=== PATIENT | female | born 1945 | race Asian ===

== ENCOUNTER 2016-12-08 22:14 | Inpatient (IN) | payer MEDICARE, OTHER ==
[~2016-12-08] VITALS: Ht 157.5 cm; Wt 52.2 kg
[2016-12-08] MEDS ORDERED: HYDRALAZINE HCL50 MG ORAL (22:19)
[2016-12-08] MEDS ORDERED: FUROSEMIDE40 MG ORAL (22:19)
[2016-12-08] MEDS ORDERED: CARVEDILOL12.5 MG ORAL (22:19)
[2016-12-08] MEDS ORDERED: ATORVASTATIN CA20 MG ORAL (22:19)
[2016-12-08] MEDS ORDERED: AMLODIPINE BESYL5 MG ORAL (22:19)
[2016-12-08] MEDS ORDERED: PLAVIX75 MG ORAL (22:19)
[2016-12-08] MEDS ORDERED: DIOVAN160 MG ORAL (22:19)
[2016-12-08] MEDS ORDERED: ASPIRIN81 MG ORAL (22:19)
[2016-12-08 22:45] VITALS: BP 160/53
--- NOTE | 2016-12-08 22:54 | Emergency Room Report ---
History of Present Illness General Chief Complaint: General Complaint Source: Patient Present Illness HPI Patient presents with complaints of concern that she took her medications on her second basis Initially at 6 PM then at 7 PM When asked how the patient realized that she had taken the medicine for a second time she reports that she has pain to the occipital region of her head and doesn't feel well Patient is a poor historian I cannot obtain specifically how the patient realized she had taken her medication again At this time denies any chest pain or shortness of breath denies any focal weakness Allergies: Coded Allergies: No Known Allergies (Unverified , 12/08/16) Patient History Limited by: medical condition Past Medical History: see triage record Pertinent Family History: none Reviewed Nursing Documentation: PMH: Agreed, PSxH: Agreed Nursing Documentation-PMH Hx Cardiac Problems: Yes - HIGH CHOLESTEROL Hx Hypertension: Yes Review of Systems All Other Systems: negative except mentioned in HPI Physical Exam Vital Signs Date Time Temp Pulse Resp B/P Pulse Ox O2 Delivery O2 Flow Rate FiO2 12/08/16 22:22 97.7 81 16 160/53 98 Room Air Sp02 EP Interpretation: reviewed, normal General Appearance: well appearing, no apparent distress Head: normocephalic, atraumatic Eyes: bilateral eye EOMI, bilateral eye PERRL ENT: hearing grossly normal, normal pharynx, TMs + canals normal, uvula midline Neck: full range of motion, supple, no meningismus, no bony tend Respiratory: lungs clear, normal breath sounds, no rhonchi, no respiratory distress, no retraction, no accessory muscle use Cardiovascular #1: normal peripheral pulses, regular rate, rhythm, no edema, no gallop, no JVD, no murmur Gastrointestinal: normal bowel sounds, non tender, soft, no mass, no organomegaly, non-distended, no guarding, no hernia, no pulsatile mass, no rebound Genitourinary: no CVA tenderness Musculoskeletal: normal inspection Neurologic: oriented x3, responsive, shared services and outsourcing manager III-XII nml as tested, motor strength/ tone normal, sensory intact Psychiatric: mood/affect normal Skin: normal color, no rash, warm/dry, palpation normal Lymphatic: normal inspection, no adenopathy Medical Decision Making Diagnostic Impression: Primary Impression: Encephalopathy Additional Impressions: Hyponatremia Hypochloremia ER Course Patient is a fairly complex patient with multiple differential to consideration including but not limited to cardiac cardiopulmonary and vascular emergencies Patient's complaints are unusual Patient is not able to clearly explain why she fell she had taken her medication on a repeat basis Patient's presentation appears to be more in line with some underlying confusion Patient is also found to have abnormal electrolytes and requires further inpatient evaluation Labs Test 12/08/16 23:25 White Blood Count 6.9 K/UL (4.8-10.8) Red Blood Count 2.98 M/UL (4.20-5.40) Hemoglobin 10.0 G/DL (12.0-16.0) Hematocrit 28.3 % (37.0-47.0) Mean Corpuscular Volume 95 FL (80-99) Mean Corpuscular Hemoglobin 33.7 PG (27.0-31.0) Mean Corpuscular Hemoglobin Concent 35.4 G/DL (32.0-36.0) Red Cell Distribution Width 11.3 % (11.6-14.8) Platelet Count 195 K/UL (150-450) Mean Platelet Volume 6.9 FL (6.5-10.1) Neutrophils (%) (Auto) 60.7 % (45.0-75.0) Lymphocytes (%) (Auto) 19.7 % (20.0-45.0) Monocytes (%) (Auto) 10.9 % (1.0-10.0) Eosinophils (%) (Auto) 7.4 % (0.0-3.0) Basophils (%) (Auto) 1.3 % (0.0-2.0) Urine Color Pale yellow Urine Appearance Clear Urine pH 7 (4.5-8.0) Urine Specific [place] 1.005 (1.005-1.035) Urine Protein 1+ (NEGATIVE) Urine Glucose (UA) Negative (NEGATIVE) Urine Ketones Negative (NEGATIVE) Urine Occult Blood 1+ (NEGATIVE) Urine Nitrite Negative (NEGATIVE) Urine Bilirubin Negative (NEGATIVE) Urine Urobilinogen Normal MG/DL (0.0-1.0) Urine Leukocyte Esterase 1+ (NEGATIVE) Urine RBC 0-2 /HPF (0 - 2) Urine WBC 0-2 /HPF (0 - 2) Urine Squamous Epithelial Cells Few /LPF (NONE/OCC) Urine Bacteria None /HPF (NONE) Sodium Level 128 mEQ/L (135-145) Potassium Level 4.0 mEQ/L (3.4-4.9) Chloride Level 86 mEQ/L (98-107) Carbon Dioxide Level 21 mEQ/L (20-30) Anion Gap 21 (5-15) Blood Urea Nitrogen 27 mg/dL (7-23) Creatinine 1.9 mg/dL (0.5-0.9) Estimat Glomerular Filtration Rate mL/min (>60) Glucose Level 119 mg/dL (74-106) Calcium Level 9.2 mg/dL (8.6-10.2) Total Bilirubin 0.3 mg/dL (0.0-1.2) Aspartate Amino Transf (AST/SGOT) 24 U/L (5-40) Alanine Aminotransferase (ALT/SGPT) 13 U/L (3-33) Alkaline Phosphatase 47 U/L (35-104) Total Creatine Kinase 234 U/L (26-140) Creatine Kinase MB 1.6 ng/mL (< 3.8) Creatine Kinase MB Relative Index 0.6 Troponin I < 0.30 ng/mL (<=0.30) Total Protein 7.8 g/dL (6.6-8.7) Albumin 4.5 g/dL (3.5-5.2) Globulin 3.3 g/dL Albumin/Globulin Ratio 1.3 (1.0-2.7) Rhythm Strip Diag. Results EP Interpretation: yes Rate: 66 Rhythm: NSR, no PVC's, no ectopy Chest X-Ray Diagnostic Results Chest X-Ray Ordered: No CT/MRI/US Diagnostic Results CT/MRI/US Diagnostic Results : Impression CT head no acute disease Last Vital Signs Date Time Temp Pulse Resp B/P Pulse Ox O2 Delivery O2 Flow Rate FiO2 12/08/16 22:45 97.7 81 16 160/53 98 Room Air Status: improved Disposition: ADMITTED INPATIENT Condition: Serious YANNA RHODES D.O. Dec 08, 2016 22:54
[2016-12-08 23:31] LABS: APPEARANCE,URINE CLEAR; KETONES,URINE NEGATIVE (NEGATIVE); LEUKOCYTE ESTERASE ,URINE 1+ (NEGATIVE); NITRITE,URINE NEGATIVE (NEGATIVE); PH,URINE 7 (4.5-8.0); PROTEIN,URINE 1+ (NEGATIVE); UROBILINOGEN,URINE NORMAL MG/DL (0.0-1.0)
[2016-12-08 23:33] VITALS: BP 142/48
[2016-12-08 23:36] LABS: BASOPHILS % (AUTO) 1.3 % (0.0-2.0); EOSINOPHILS % (AUTO) 7.4 % (0.0-3.0); LYMPHOCYTES % (AUTO) 19.7 % (20.0-45.0); MEAN CORPUSCULAR HEMOGLOBIN 33.7 PG (27.0-31.0); MEAN CORPUSCULAR HGB CONC 35.4 G/DL (32.0-36.0); MEAN CORPUSCULAR VOLUME 95 FL (80-99); MEAN PLATELET VOLUME 6.9 FL (6.5-10.1); MONOCYTES % (AUTO) 10.9 % (1.0-10.0); NEUTROPHILS % (AUTO) 60.7 % (45.0-75.0); PLATELET COUNT 195 K/UL (150-450); RED BLOOD COUNT 2.98 M/UL (4.20-5.40); RED CELL DISTRIBUTION WIDTH 11.3 % (11.6-14.8); WHITE BLOOD COUNT 6.9 K/UL (4.8-10.8)
[2016-12-08 23:42] LABS: ALANINE AMINOTRANSFERASE 13 U/L (3-33); ALBUMIN/GLOBULIN RATIO 1.3 (1.0-2.7); ANION GAP 21 (5-15); ASPARTATE AMINO TRANSFERASE 24 U/L (5-40); CALCIUM 9.2 mg/dL (8.6-10.2); CARBON DIOXIDE 21 mEQ/L (20-30); CHLORIDE 86 mEQ/L (98-107); CREATININE 1.9 mg/dL (0.5-0.9); HEMOLYSIS 3; SODIUM 128 mEQ/L (135-145); TOTAL PROTEIN 7.8 g/dL (6.6-8.7); TROPONIN I < 0.30 ng/mL (<=0.30)
[2016-12-08 23:52] LABS: CKMB 1.6 ng/mL (< 3.8)
[2016-12-08 23:56] LABS: RBC,URINE 0-2 /HPF (0 - 2); SQUAMOUS EPITHELIAL CELL,UR FEW /LPF (NONE/OCC); WBC,URINE 0-2 /HPF (0 - 2)
[2016-12-09] VITALS (7 sets, daily range): BP systolic 113–147; BP diastolic 44–61
[2016-12-09] MEDS: Aspirin Baby 81mg ORAL SCH (08:19)
[2016-12-09] MEDS: HydrALAZINE 50mg tab ORAL SCH ×2 (08:19→18:00)
[2016-12-09] MEDS: Carvedilol 12.5mg tab ORAL SCH ×2 (08:19→20:52)
[2016-12-09] MEDS: Heparin 5000 units/ml inj SUBQ SCH ×2 (08:27→19:25)
[2016-12-09] MEDS ORDERED: Irbesartan 150mg tablet ORAL SCH (09:00)
--- NOTE | 2016-12-09 09:00 | History and Physical Report ---
DATE OF ADMISSION: 12/08/2016 CHIEF COMPLAINT: Possible medication overdose, hyponatremia, and acute renal failure. HISTORY OF PRESENT ILLNESS: The patient is a 71-year-old female. She has a history of hypertension and hyperlipidemia, presented from home. She had actually took too many of her medications. According to the patient, she was well. She heard that her son was recently involved in a car accident became anxious, went to her room, and took some of her blood pressure medications. She took only 2 to 3 extra tablets, but she is unclear which medication she actually took and because of this, she presented to the emergency room. her vital signs were stable, but laboratory tests showed a sodium of 128 with a creatinine of 1.9. According to the patient, she has no prior history of electrolytes disorder. She has no history of kidney problems. She has now been admitted for further evaluation and care. PAST MEDICAL HISTORY: As above. PAST SURGICAL HISTORY: Includes . CURRENT MEDICATIONS: Reconciled and reviewed. ALLERGIES: None. SOCIAL HISTORY: Negative for tobacco, ethanol, or drugs. FAMILY HISTORY: None. REVIEW OF SYSTEMS: General: No fever or chills. HEENT: No headaches or visual changes. Cardiopulmonary: No chest pain or shortness of breath. Gastrointestinal: No nausea or vomiting. : No urgency or frequency. Muscular: No muscular pain or swelling. Neurologic: No history of seizures. PHYSICAL EXAMINATION: VITAL SIGNS: Temperature 98 degrees, blood pressure 113/53, pulse 82, and respirations 19. GENERAL: The patient is no respiratory apparent distress. HEART: Regular rate and rhythm. LUNGS: Clear . ABDOMEN: Soft, nontender, and nondistended. EXTREMITIES: Without clubbing, cyanosis, or edema. LABORATORY DATA: Sodium is 128 and creatinine 1.9. ASSESSMENT: This is a pleasant female with complaints of possible overdose of blood pressure medications. Vital signs are stable, but she is hyponatremic with acute renal failure. PLAN: IV hydration with normal saline. Repeat labs later in the day. If normal, the patient possibly be discharged home. Plan of care was discussed with the patient. She is agreeable . Cristian De Los Santos M.D. DR: Rachell JOB#: [id number] CC:
[2016-12-09 09:57] LABS: BASOPHILS % (AUTO) 0.8 % (0.0-2.0); EOSINOPHILS % (AUTO) 4.9 % (0.0-3.0); LYMPHOCYTES % (AUTO) 15.5 % (20.0-45.0); MEAN CORPUSCULAR HEMOGLOBIN 32.3 PG (27.0-31.0); MEAN CORPUSCULAR HGB CONC 33.6 G/DL (32.0-36.0); MEAN CORPUSCULAR VOLUME 96 FL (80-99); MEAN PLATELET VOLUME 6.2 FL (6.5-10.1); NEUTROPHILS % (AUTO) 70.8 % (45.0-75.0); PLATELET COUNT 180 K/UL (150-450); RED BLOOD COUNT 2.95 M/UL (4.20-5.40); RED CELL DISTRIBUTION WIDTH 11.5 % (11.6-14.8); WHITE BLOOD COUNT 5.9 K/UL (4.8-10.8)
[2016-12-09 10:19] LABS: TROPONIN I < 0.30 ng/mL (<=0.30)
[2016-12-09 11:00] LABS: ANION GAP 17 (5-15); CARBON DIOXIDE 22 mEQ/L (20-30); CHLORIDE 96 mEQ/L (98-107); CREATININE 1.4 mg/dL (0.5-0.9); SODIUM 135 mEQ/L (135-145)
[2016-12-09 11:01] LABS: ALANINE AMINOTRANSFERASE 10 U/L (3-33); ALBUMIN/GLOBULIN RATIO 1.6 (1.0-2.7); ASPARTATE AMINO TRANSFERASE 21 U/L (5-40); CALCIUM 8.8 mg/dL (8.6-10.2); TOTAL PROTEIN 6.5 g/dL (6.6-8.7)
[2016-12-09 14:51] LABS: ANION GAP 16 (5-15); CALCIUM 8.5 mg/dL (8.6-10.2); CARBON DIOXIDE 23 mEQ/L (20-30); CHLORIDE 99 mEQ/L (98-107); CREATININE 1.4 mg/dL (0.5-0.9); HEMOLYSIS 3; POTASSIUM 4.1 mEQ/L (3.4-4.9); SODIUM 138 mEQ/L (135-145)
[2016-12-09] MEDS ORDERED: Atorvastatin 20mg tab ORAL SCH (21:00)
[2016-12-10] VITALS: BP 98/43
[2016-12-10 04:00] VITALS: BP 121/47
[2016-12-10 07:37] VITALS: BP 101/45
--- NOTE | 2016-12-10 08:12 | General Progress Note ---
Assessment/Plan Problem List: (1) Acute renal failure ICD Codes: N17.9 - Acute kidney failure, unspecified SNOMED: 54496574 (2) Hyponatremia ICD Codes: E87.1 - Hypo-osmolality and hyponatremia SNOMED: 35476441 (3) Encephalopathy ICD Codes: G93.40 - Encephalopathy, unspecified SNOMED: 49522348, 888419535 Status: stable, progressing Assessment/Plan same BP rx pt ot eval social work therapist eval ?dc planning if safe Subjective ROS Limited/Unobtainable: No Constitutional: Reports: malaise, weakness HEENT: Reports: no symptoms Cardiovascular: Reports: no symptoms Respiratory: Reports: no symptoms Gastrointestinal/Abdominal: Reports: no symptoms Genitourinary: Reports: no symptoms Neurologic/Psychiatric: Reports: no symptoms Endocrine: Reports: no symptoms Hematologic/Lymphatic: Reports: no symptoms Allergies: Coded Allergies: No Known Allergies (Unverified , 12/08/16) All Systems: reviewed and negative except above Subjective better today. had sitter because pt was getting up unassited. renal fxn better. 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 Objective Last 24 Hour Vital Signs Date Time Temp Pulse Resp B/P Pulse Ox O2 Delivery O2 Flow Rate FiO2 12/10/16 07:37 98.0 67 20 101/45 98 Room Air 12/10/16 04:00 98.0 72 17 121/47 97 Room Air 12/10/16 00:00 97.6 69 17 98/43 97 Room Air 12/09/16 20:52 75 133/49 12/09/16 20:00 98.4 75 18 133/49 98 Room Air 12/09/16 18:00 121/49 12/09/16 18:00 78 121/49 12/09/16 15:45 98.7 78 19 121/49 97 Room Air 12/09/16 11:48 98.8 81 19 120/44 97 Room Air 12/09/16 08:19 143/56 12/09/16 08:19 84 143/56 12/09/16 08:19 84 143/56 Intake and Output 12/09/16 12/10/16 19:00 07:00 Intake Total 2390 ml 1020 ml Balance 2390 ml 1020 ml Intake Oral 1715 ml 120 ml IV Total 675 ml 900 ml # Voids 6 2 Laboratory Tests 12/09/16 09:30: White Blood Count 5.9, Red Blood Count 2.95L, Hemoglobin 9.5L, Hematocrit 28.4L , Mean Corpuscular Volume 96, Mean Corpuscular Hemoglobin 32.3H, Mean Corpuscular Hemoglobin Concent 33.6, Red Cell Distribution Width 11.5L, Platelet Count 180, Mean Platelet Volume 6.2L, Neutrophils (%) (Auto) 70.8, Lymphocytes (%) (Auto) 15.5L, Monocytes (%) (Auto) 8.0, Eosinophils (%) (Auto) 4.9H, Basophils (%) (Auto) 0.8, Sodium Level 135, Potassium Level 4.0, Chloride Level 96L, Carbon Dioxide Level 22, Anion Gap 17H, Blood Urea Nitrogen 23, Creatinine 1.4H, Estimat Glomerular Filtration Rate , Glucose Level 129H, Calcium Level 8.8, Total Bilirubin 0.3, Aspartate Amino Transf (AST/SGOT) 21, Alanine Aminotransferase (ALT/SGPT) 10, Alkaline Phosphatase 44, Troponin I < 0.30, Total Protein 6.5L, Albumin 4.0, Globulin 2.5, Albumin/Globulin Ratio 1.6 , Thyroid Stimulating Hormone (TSH) 1.790 12/09/16 14:20: Sodium Level 138, Potassium Level 4.1, Chloride Level 99, Carbon Dioxide Level 23, Anion Gap 16H, Blood Urea Nitrogen 23, Creatinine 1.4H, Estimat Glomerular Filtration Rate , Glucose Level 131H, Calcium Level 8.5L Height (Feet): 5 Height (Inches): 2.00 Weight (Pounds): 115 General Appearance: WD/WN, alert Neck: supple Cardiovascular: regular rhythm Respiratory/Chest: lungs clear, normal breath sounds, no respiratory distress Abdomen: normal bowel sounds, non tender, soft, no organomegaly Skin: normal pigmentation Lymphatic: normal anterior cervical (L), normal anterior cervical (R), normal axillary (L), normal axillary (R), normal inguinal (L), normal inguinal (R), normal other, normal posterior cervical (L), normal posterior cervical (R), normal submandibular (L), normal submandibular (R), normal supraclavicular (L), normal supraclavicular (R) WALTER BEASLEY Dec 10, 2016 08:12
--- NOTE | 2016-12-10 08:16 | Cardiology Report ---
APPROVED REPORT EKG Measurement Heart [id number] Normal sinus rhythm Normal ECG
[2016-12-10 08:46] VITALS: BP 120/57
[2016-12-10] MEDS: HydrALAZINE 50mg tab ORAL SCH (08:50)
[2016-12-10] MEDS: Aspirin Baby 81mg ORAL SCH (08:50)
[2016-12-10] MEDS: Carvedilol 12.5mg tab ORAL SCH (08:51)
[2016-12-10] MEDS: Heparin 5000 units/ml inj SUBQ SCH (08:52)
[2016-12-10 11:37] VITALS: BP 130/52
--- NOTE | 2016-12-11 09:33 | Diagnostic Imaging Report ---
Indications: Renal failure Technique: Transabdominal real-time grayscale and duplex Doppler imaging of the kidneys, retroperitoneum, and urinary bladder was performed Findings: Comparison: None Right kidney measures 9.8 cm in length. Mild cortical thinning and increased cortical echogenicity. 4 cm circumscribed anechoic focus upper pole cortex. Centimeter circumscribed anechoic focus lower pole cortex.. No stones, other focal lesions, hydronephrosis, or obvious perinephric abnormalities. Left kidney measures 8 cm in length. Cortical thinning and increased cortical echogenicity.. No stones, other focal lesions, hydronephrosis, or obvious perinephric abnormalities. The intrahepatic portion of inferior vena cava is inadequately demonstrated. The urinary bladder is inadequately demonstrated. IMPRESSION: Bilateral atrophic echogenic kidneys compatible with chronic medical renal disease Right renal cortical simple cysts Nonvisualization of IVC, urinary bladder
--- NOTE | 2016-12-11 20:35 | Discharge Summary ---
Discharge Summary Hospital Course Date of Admission Dec 08, 2016 at 23:07 Date of Discharge Dec 10, 2016 at 12:30 Admitting Diagnosis encephalopathy HPI Harmony Caballero is a 71 year old female who was admitted on Dec 08, 2016 at 23: 07 for Encephalopathy Hospital Course [id number] Discharge Discharge Disposition Patient was discharged to Home (01) Discharge Diagnoses: Emily Newby NP Dec 11, 2016 20:35
--- NOTE | 2016-12-12 01:15 | Discharge Summary 2 SIG ---
DATE OF ADMISSION: 12/08/2016 DATE OF DISCHARGE: 12/10/2016 BRIEF HOSPITAL COURSE: The patient is a 71-year-old female with history of hypertension and hyperlipidemia, presented from home. The patient was doing well, however, heard that the son was recently involved in a car accident. She became anxious and accidentally took extra blood pressure medications. On evaluation at ED, she appeared to have some confusion and required further inpatient evaluation. Sodium was 128. Creatinine was 1.9. She was started on IV hydration. Following day, she underwent physical therapy and occupational therapy and the patient was eventually discharged home. FINAL DIAGNOSES: 1. Acute renal failure. 2. Hyponatremia. 3. Acute encephalopathy, resolved. Cristian De Los Santos M.D. I have been assigned to dictate discharge summary on this account and I was not involved in the patient's management. Emily Newby N.P. DR: DENEEN JOB#: [id number] CC: MERVIN
== END 2016-12-10 12:30 | disposition home or self-care (01) | DRG 917 ==
LOC: EMR 22:55 → 3E 23:07 → EDBEDREQ 23:18
DX: T46.5X1A Poisoning by other antihypertensive drugs, accidental (unintentional), initial encounter (principal); G92 Toxic encephalopathy; N17.9 Acute kidney failure, unspecified; E87.1 Hypo-osmolality and hyponatremia; Y92.009 Unspecified place in unspecified non-institutional (private) residence as the place of occurrence of the external cause; E78.5 Hyperlipidemia, unspecified
CPT/HCPCS: 36415; 70450; 76775; 80048; 80053; 81003; 82550; 82553; 84443; 84484; 85025; 93005